=== PATIENT | female | born 1985 | race Caucasian/White ===

== ENCOUNTER 2016-10-03 12:29 | Observation (INO) | payer OTHER | END 2016-10-03 21:43 | disposition home or self-care (01) | LOC: FLD 12:29 | PROVIDERS: ADMIT Obstetrics & Gynecology; ATTEND Obstetrics & Gynecology | DX: Z34.03 Encounter for supervision of normal first pregnancy, third trimester (principal) | CPT/HCPCS: G0378 ×2 ==

== ENCOUNTER 2016-10-06 09:55 | Inpatient (IN) | payer OTHER ==
[2016-10-06] MEDS ORDERED: LR 1,000 ML IV PRN (10:56)
[2016-10-06] MEDS ORDERED: TERBUTALINE SULFATE 1 MG/ML VIAL IV PRN (10:56)
[2016-10-06] MEDS ORDERED: LIDOCAINE 1% 30 ML SDV SC PRN (10:56)
[2016-10-06] MEDS ORDERED: OLIVE OIL 118 ML BTL MISC PRN (10:56)
[2016-10-06] MEDS ORDERED: OXYTOCIN/RINGERS LACTATE 1,000 ML IV PRN (10:56)
[2016-10-06] MEDS ORDERED: EPSOM SALT 454 GM TP PRN (10:56)
[2016-10-06] MEDS ORDERED: AMMONIA AROMATIC 1 EACH AMP IH ONE (11:31)
[2016-10-06] MEDS ORDERED: TERBUTALINE SULFATE 1 MG/ML VIAL ONE (11:31)
[2016-10-06] MEDS ORDERED: OLIVE OIL 118 ML BTL ONE (11:31)
[2016-10-06] MEDS ORDERED: LIDOCAINE 1% 30 ML SDV ONE (11:31)
[2016-10-06] MEDS ORDERED: MISOPROSTOL 200 MCG TAB ONE (11:32)
[2016-10-06 11:34] LABS: % IMMATURE GRANULYOCYTES 0.5 % (0.0-1.1); ABSOLUTE IMMATURE GRANULOCYTES 0.05 10^3/uL (0.00-0.10); ADD DIFF? NO; ADD MORPH? NO; ADD SCAN? NO; ATYPICAL LYMPHOCYTE FLAG 10 (0-99); FRAGMENT RBC FLAG 0 (0-99); HEMATOCRIT 37.2 % (38.0-47.0); HEMOGLOBIN 13.2 g/dL (12.6-16.3); LEFT SHIFT FLG 10 (0-99); LIPEMIA HEMOLYSIS FLAG 90 (0-99); MEAN CELL HEMOGLOBIN 31.7 pg (27.9-34.1); MEAN CELL HEMOGLOBIN CONCENTR. 35.5 g/dL (32.4-36.7); MEAN CELL VOLUME 89.4 fL (81.5-99.8); MEAN PLATELET VOLUME 9.5 fL (8.7-11.7); PLATELET CLUMPS FLAG 0 (0-99); PLATELET COUNT 240 10^3/uL (150-400); RED BLOOD CELL COUNT 4.16 10^6/uL (4.18-5.33); RED CELL DISTRIBUTION WIDTH 12.4 % (11.5-15.2)
[2016-10-06] MEDS ORDERED: LR 500 ML IV PRN (11:34)
[2016-10-06] MEDS ORDERED: OXYTOCIN/RINGERS LACTATE 500 ML IV SCH (12:00)
--- NOTE | 2016-10-06 13:40 | GHP ---
[f rep st] PREOP HISTORY AND PHYSICAL DATE OF ADMISSION: 10/06/2016 CHIEF COMPLAINT: Decreased movement at term. HISTORY OF PRESENT ILLNESS: The patient is a 31-year-old G1, P0 female who is at 40 and 2/7 weeks gestation, who presents for induction of labor from clinic secondary to decreased movement at term. PAST MEDICAL HISTORY: Negative. PAST SURGICAL HISTORY: Negative. OB HISTORY: This is her first . BRA[employer]PA[employer]RO[employer] HISTORY: She does have a BRAKE [employer]PA[employer] history of LEEP. ALLERGIES: She has no known drug allergies. MEDICATIONS: She is taking vitamin complete and vitamin C daily. PHYSICAL EXAMINATION: VITAL SIGNS: Stable. GENERAL: She is in no apparent distress. Estimated weight is 8 pounds. Cervical exam: 4/90/- 2 station. She is cornelius irregularly. heart tones in the 140s with moderate variability. LABS: O positive. Antibody screen negative. GBS negative. Rubella immune. ASSESSMENT AND PLAN: This is a 31-year-old, G1, P0, female who is at 40 and 2/ 7 weeks gestation with decreased movement at term. well-being is reassuring. GBS is negative. We will plan rupture of bag of orellana if she does not progress in labor. /[id number]/MODL MTDD
[2016-10-06] MEDS ORDERED: BUPIVACAINE 0.25% 30 ML SDV ONE ×2 (17:49→17:52)
[2016-10-06] MEDS ORDERED: fentaNYL 2MCG/ML/BUP 0.1% RTU 100 ML BAG EP ONE ×2 (17:49→17:52)
[2016-10-06] MEDS ORDERED: PHENYLEPHRINE HCL 100 MCG/ML SYR ONE ×2 (17:50→17:52)
[2016-10-06] MEDS ORDERED: fentaNYL 100 MCG/2 ML INJ ONE ×2 (17:53→19:57)
[2016-10-06] MEDS ORDERED: PHENYLEPHRINE HCL 100 MCG/ML SYR IVP PRN (19:01)
[2016-10-06] MEDS ORDERED: ONDANSETRON 4 MG/2 ML VIAL IVP PRN (19:01)
--- NOTE | 2016-10-06 19:04 | PREANESOB ---
Obstetric Pre-Anesthesia Info - General Info Proposed Procedure: Labor and delivery with pitocin. : 1 Para: 1 WBD: 40 - Info Status: Full Term Monitors: External FHR Baseline (bpm): 130 FHR Pattern: Reassuring - Labor Status Cervical Dilation per last OB SVE: 5 Pitocin: In Use Indications for Labor Analgesia: Induction of Labor, Pain Control Labor Epidural: Proposed Anesthesia ROS: Negative. Allergies/Adverse Reactions: Allergy/AdvReac Type Severity Reaction Status Date / Time No Known Allergies Allergy Unverified 10/03/16 16:07 Home Medications: Medication Instructions Recorded tab PO 10/03/16 Visit Medications: Generic Name Dose Route Start Last Admin Trade Name Freq PRN Reason Stop Dose Admin Lactated Ringer's 1,000 mls @ 0 mls/hr 10/06/16 10:56 Lr IV 04/04/17 10:55 PRN PRN SEE PROTOCOL CONDITIONS Protocol Per Protocol Oxytocin/Lactated Ringer's 1,000 mls @ 150 mls/hr 10/06/16 10:56 Pitocin 20 Units/Lr (Premix) IV PRN PRN Post- bleeding Lactated Ringer's 500 mls @ 500 mls/hr 10/06/16 11:34 Lr IV PRN PRN Maternal Hypotension Oxytocin/Lactated Ringer's 500 mls @ 0 mls/hr 10/06/16 12:00 Pitocin 30 Units/Lr (Premix) IV 04/04/17 11:59 CONT ALBERTO Protocol Per Protocol Ibuprofen 600 mg 10/06/16 10:56 Motrin PO 04/04/17 10:55 Q6HRS PRN post , inflammation Lidocaine HCl 30 ml 10/06/16 10:56 Lidocaine Hcl 1% SC 04/04/17 10:55 ONCE PRN Episiotomy Magnesium Sulfate 454 gm 10/06/16 10:56 Epsom Salt TP 04/04/17 10:55 PRN PRN perineal discomfort [place] Oil 118 ml 10/06/16 10:56 Sweet Oil MISC 04/04/17 10:55 ONCE PRN preneal massage Terbutaline Sulfate 0.25 mg 10/06/16 10:56 Brethine IV 04/04/17 10:55 ONCE PRN Tachysystole Discontinued Medications Generic Name Dose Route Start Last Admin Trade Name Freq PRN Reason Stop Dose Admin Ammonia (Aromatic Spirit) Confirm 10/06/16 11:31 Ammonia Aromatic Administered 10/06/16 11:32 Dose 1 each IH .STK-MED ONE Bupivacaine HCl Confirm 10/06/16 17:49 Sensorcaine 0.25% Sdv Administered 10/06/16 17:50 Dose 30 ml .ROUTE .STK-MED ONE Bupivacaine HCl Confirm 10/06/16 17:52 Sensorcaine 0.25% Sdv Administered 10/06/16 17:53 Dose 30 ml .ROUTE .STK-MED ONE Fentanyl Confirm 10/06/16 17:53 Sublimaze Administered 10/06/16 17:54 Dose 100 mcg .ROUTE .STK-MED ONE Fentanyl/Bupivacaine HCl Confirm 10/06/16 17:49 Fentanyl/Bupivacaine/Ns 2 Mcg/Ml 0.1% (Premix Administered 10/06/16 17:50 Dose 100 ml EP .STK-MED ONE Fentanyl/Bupivacaine HCl Confirm 10/06/16 17:52 Fentanyl/Bupivacaine/Ns 2 Mcg/Ml 0.1% (Premix Administered 10/06/16 17:53 Dose 100 ml EP .STK-MED ONE Lidocaine HCl Confirm 10/06/16 11:31 Lidocaine Hcl 1% Administered 10/06/16 11:32 Dose 30 ml .ROUTE .STK-MED ONE Misoprostol Confirm 10/06/16 11:32 Cytotec Administered 10/06/16 11:33 Dose 800 mcg .ROUTE .STK-MED ONE [place] Oil Confirm 10/06/16 11:31 Sweet Oil Administered 10/06/16 11:32 Dose 118 ml .ROUTE .STK-MED ONE Phenylephrine HCl Confirm 10/06/16 17:50 Festus-Synephrine Administered 10/06/16 17:51 Dose 1,000 mcg .ROUTE .STK-MED ONE Phenylephrine HCl Confirm 10/06/16 17:52 Festus-Synephrine Administered 10/06/16 17:53 Dose 1,000 mcg .ROUTE .STK-MED ONE Terbutaline Sulfate Confirm 10/06/16 11:31 Brethine Administered 10/06/16 11:32 Dose 1 mg .ROUTE .STK-MED ONE - Anesthesia History Response to Local Anesthetics: Normal - Social History Substance Use/Abuse: Denies - Focused Exam Blood Pressure: 109/69 Heart Rate: 96 Height/Weight (Nursing): Height 170.18 cm Weight 111.584 kg Physical Exam: Within normal limits. ASA Status: II Labs: 10/06/16 10:30 Patient ABO/Rh O POSITIVE 10/06/16 10:30 - Plan Anesthetic Plan: CSE Consent Signed and on Chart: Yes Patient/Guardian Understands and Agrees to Plan: Yes
--- NOTE | 2016-10-06 19:06 | POSTANESTH ---
Post Anesthetic Evaluation Cardiovascular Status: Normal, Stable, Similar to Pre-Op Cond Respiratory Status: Normal, Stable, Similar to Pre-op Cond. Level of Consciousness/Mental Status: Can Participate in Eval, Alert and Oriented Pain Control: Adequate, Prn Tx Ordered Nausea/Vomiting Control: Adequate, Prn Tx Ordered Complications Possibly Related to Anesthesia: None Noted (Tolerated CSE well, stable, comfortable.)
[2016-10-06] MEDS ORDERED: fentaNYL 2MCG/ML/BUP 0.1% RTU 100 ML EP SCH (19:30)
[2016-10-06] MEDS ORDERED: LR 500 ML IV SCH (19:30)
--- NOTE | 2016-10-06 19:37 | OBPROG ---
OBG Progress Note Assessment/Plan: Assessment: 31 yo @ 40 2/7, IOL for decreased movement at term, favorable cervix Plan: 10/06/16 19:36 FWB reassuring. GBS neg. IUPC placed to titrate pitocin. Expect . Subjective: 31 yo @ 40 2/7, IOL for decreased movement at term, favorable cervix Objective: 10/06/16 10:30 Patient ABO/Rh O POSITIVE 10/06/16 10:30 Temp Pulse Resp BP Pulse Ox 96 109/69 10/06/16 19:04 10/06/16 19:04 VSS - SVE Dilation (cm): 7 Effacement (%): 100 Station: -2 Current Contraction Pattern: Regular FHR (bpm): 130 FHR Pattern Variability: Moderate FHR Category: 2 Membranes: SROM Amniotic Fluid Color: Clear ICD10 Worksheet Patient Problems: Problems Problem Status Onset Decreased movement affecting management of in third trimester Acute
[2016-10-07] MEDS ORDERED: SIMETHICONE 80 MG TAB CHEW PO PRN (01:12)
[2016-10-07] MEDS ORDERED: HYDROCORTISONE 0.5% CREAM TP PRN (01:12)
--- NOTE | 2016-10-07 01:16 | OBPROC ---
- Labor and Delivery Onset of Contractions Date: 10/06/16 Onset of Contractions Time: 11:30 Onset of Contractions Type: Induced Rupture of Membranes Date: 10/06/16 Rupture of Membranes Time: 17:15 Rupture of Membranes Type: Spontaneous Amniotic Fluid Color: Clear Dilation Complete Time: 22:00 Delivery Type: Vacuum Placenta Delivery Date: 10/07/16 Episiotomy/Laceration: 2nd Degree Repair: 3-0, Vicryl EBL: 300ml Complications: None - Medications Labor Augmentation/Induction Meds Used: Pitocin Labor Augmentation/Induction Indication: Post Dates Anesthesia: Epidural - Info Infant A Delivery Date: 10/07/16 Delivery Time: 00:50 Sex of Infant: Female Score (1 Min): 8 Score (5 Min): 9 (Patient had been pushing for over 2 hours, began to have exhaustion. Offered assistance with vacuum with risks of cephalohematoma. Pt agreed to proceed. Patient's bladder was emptied, fetus was at +4 station , oa position. With 3 pulls, no popoffs, fetus was brought to +5 station. Vacuum was released, and patient continued to push and delivered infant shortly after. Mom and in stable condition.)
[2016-10-07] MEDS: IBUPROFEN 600 MG TAB PO PRN ×4 (02:22→23:30)
[2016-10-07] MEDS: DOCUSATE SODIUM 100 MG CAP PO PRN (08:46)
[2016-10-07] MEDS: HYDROCODONE/APAP 5/325 TAB PO PRN ×3 (10:59→23:30)
[2016-10-08] MEDS: HYDROCODONE/APAP 5/325 TAB PO PRN ×4 (03:13→19:42)
[2016-10-08] MEDS: IBUPROFEN 600 MG TAB PO PRN ×3 (05:27→18:51)
--- NOTE | 2016-10-08 08:41 | OBGCSDC ---
General Delivery Information - General Info : 1 Para: 1 Delivery Date: 10/07/16 Delivery Time: 00:50 Delivery Physician/CNM: Zhanna Rivera Admission Date: 10/06/16 Labs: Patient ABO/Rh O POSITIVE 10/06/16 10:30 Hct 37.2 % (38.0-47.0) L 10/06/16 10:30 - Info Infant A Sex of Infant: Female Score (1 Min): 8 Score (5 Min): 9 (Patient had been pushing for over 2 hours, began to have exhaustion. Offered assistance with vacuum with risks of cephalohematoma. Pt agreed to proceed. Patient's bladder was emptied, fetus was at +4 station , oa position. With 3 pulls, no popoffs, fetus was brought to +5 station. Vacuum was released, and patient continued to push and delivered shortly after. Mom and in stable condition.) Vaginal - Diagnosis Labor: Induced Rupture of Membranes Type: Spontaneous Amniotic Fluid Color: Clear Laceration: 2nd Degree Repair: 3-0, Vicryl Complications: None - Operations/Procedures Delivery Type: Vacuum Procedures: Internal Monitors Anesthesia: Epidural - Delivery EBL: 300ml Anesthesia: Epidural Discharge Information - Discharge Information Discharge Medications: Ibuprofen, Vitamins, Vicodin Complications: Prolonged pushing due to OT position and needing vacuum-assisted vaginal delivery Condition: Good Instruction/Follow Up: Six Weeks Discharge Physician/CNM: Angela Monroy Discharge Date: 10/08/16 Dictated: No
[2016-10-08] MEDS: DOCUSATE SODIUM 100 MG CAP PO PRN ×2 (09:51→19:42)
[2016-10-08 21:05] VITALS: RESP 18
[2016-10-09] MEDS: HYDROCODONE/APAP 5/325 TAB PO PRN ×3 (00:01→09:46)
[2016-10-09] MEDS: IBUPROFEN 600 MG TAB PO PRN ×2 (01:24→08:19)
[2016-10-09] MEDS: DOCUSATE SODIUM 100 MG CAP PO PRN (08:19)
[2016-10-09 11:27] VITALS: BP 126/76; PULSE 80; TEMP 98.3; O2SAT 97
--- NOTE | 2016-10-09 11:58 | OBGCSDC ---
General Delivery Information - General Info : 1 Para: 1 Delivery Date: 10/07/16 Delivery Time: 00:50 Delivery Physician/CNM: Zhanna Rivera Admission Date: 10/06/16 Labs: Patient ABO/Rh O POSITIVE 10/06/16 10:30 Hct 37.2 % (38.0-47.0) L 10/06/16 10:30 - Info Infant A Sex of Infant: Female Score (1 Min): 8 Score (5 Min): 9 (Patient had been pushing for over 2 hours, began to have exhaustion. Offered assistance with vacuum with risks of cephalohematoma. Pt agreed to proceed. Patient's bladder was emptied, fetus was at +4 station , oa position. With 3 pulls, no popoffs, fetus was brought to +5 station. Vacuum was released, and patient continued to push and delivered shortly after. Mom and in stable condition.) Vaginal - Diagnosis Labor: Induced Rupture of Membranes Type: Spontaneous Amniotic Fluid Color: Clear Laceration: 2nd Degree Repair: 3-0, Vicryl Complications: None - Operations/Procedures Delivery Type: Vacuum - Hospital Course : Meeting all milestones for discharge on PPD#2. Originally planned to go home on PPD#1 but stayed to get extra sleep as they were exhausted. - Delivery EBL: 300ml Anesthesia: Epidural Discharge Information - Discharge Information Discharge Medications: Ibuprofen, Vitamins, Vicodin Condition: Good Instruction/Follow Up: Two Weeks Discharge Physician/CNM: Magy Hampton Discharge Date: 10/09/16
== END 2016-10-09 12:50 | disposition home or self-care (01) | DRG 775 ==
LOC: FLD 09:55 → FOB 10-07 03:45
PROVIDERS: ADMIT Obstetrics & Gynecology; ATTEND Obstetrics & Gynecology
DX: O36.8130 Decreased fetal movements, third trimester, not applicable or unspecified (principal); O75.81 Maternal exhaustion complicating labor and delivery; O70.1 Second degree perineal laceration during delivery; O48.0 Post-term pregnancy; Z3A.40 40 weeks gestation of pregnancy; Z37.0 Single live birth
CPT/HCPCS: J2370; J2405; J2590; J3010; J3105

== ENCOUNTER → 2017-09-25 | Outpatient (CLI) | payer OTHER | LOC: BMCIMAGING 10:21 | PROVIDERS: ATTEND Midwife | DX: N63.10 Unspecified lump in the right breast, unspecified quadrant (principal) ==